=== PATIENT | male | born 1960 | race Caucasian/White ===

== ENCOUNTER 2018-01-10 23:45 | Emergency (ER) | payer MEDICAID ==
[~2018-01-10] VITALS: Ht 182.9 cm; Wt 76.2 kg
[2018-01-11 04:56] VITALS: BP 105/68
== END 2018-01-11 05:00 | disposition home or self-care (01) ==
LOC: ER 23:47
DX: F10.129 Alcohol abuse with intoxication, unspecified (principal); F17.200 Nicotine dependence, unspecified, uncomplicated; Y90.9 Presence of alcohol in blood, level not specified
CPT/HCPCS: 99284

== ENCOUNTER 2018-06-24 22:02 | Emergency (ER) | payer MEDICAID ==
[~2018-06-24] VITALS: Ht 184.2 cm; Wt 76.0 kg
--- NOTE | 2018-06-24 22:10 | NUR ---
UPON PALPATION OF HEAD/SKULL AND AND SPINE, PATIENT STATED "OWE" TO PALPATION OF POSTERIOR INFERIOR SKULL: CRISTIAN MERCADO INFORMED
--- NOTE | 2018-06-24 22:27 | NUR ---
accompanied patient to ct scan tried to bring patient back into main ER but patient started screaming obscenities again patient with tech, security and rpd in [place]
[2018-06-24 23:07] VITALS: BP 158/98
== END 2018-06-24 23:11 ==
LOC: ER 22:03
DX: S02.2XXA Fracture of nasal bones, initial encounter for closed fracture (principal); F10.129 Alcohol abuse with intoxication, unspecified; Z02.89 Encounter for other administrative examinations; Y90.9 Presence of alcohol in blood, level not specified; W17.89XA Other fall from one level to another, initial encounter; Y93.89 Activity, other specified; Y92.89 Other specified places as the place of occurrence of the external cause; Y99.8 Other external cause status
CPT/HCPCS: 70470; 99284